=== PATIENT | female | born 1995 | race Caucasian/White ===

== ENCOUNTER → 2021-09-22 | Outpatient (CLI) | payer OTHER ==
--- NOTE | 2021-09-22 19:43 | CT ---
EXAMINATION TYPE: CT chest wo con DATE OF EXAM: 09/22/2021 INDICATION: HX OF COVID AND SOB SINCE/ POSS CYSTIC FIBROSIS CT DLP: 730.70 mGy.cm Automated Exposure Control for Dose Reduction was Utilized. TECHNIQUE AND CONTRAST: Axial CT scan of the chest without IV contrast administration, performed in the supine and prone posi tions as per high-resolution protocol. COMPARISON: None available FINDINGS: No evidence of pulmonary fibrosis, groundglass opacities, peripheral reticulations, bronchiectasis, h oneycombing or cystic changes. Patent trachea and main bronchi. No pleural or pericardial effusion. N o cardiomegaly. No pathologically enlarged lymph nodes in the chest by this CT scan. Grossly unremarkable upper abdomen. Bony projection is seen between the anterior aspects of the left fourth and fifth ribs protruding internally into the thoracic cavity which could be congenital or rep resent sequela of previous trauma. This could also represent an osteochondroma. IMPRESSION: No significant pulmonary abnormality. Bony projection between the fourth and fifth ribs as described above, which could represent an osteoc hondroma versus sequela of previous trauma, please correlate clinically. Further dedicated multiplana r CT scan of the chest can be considered.
== END | disposition home or self-care (01) ==
LOC: RADCTMAIN 17:31
PROVIDERS: ATTEND Internal Medicine Critical Care Medicine
DX: R06.02 Shortness of breath (principal); Z86.16 Personal history of COVID-19
CPT/HCPCS: 71250